=== PATIENT | female | born 2000 | race Caucasian/White ===

== ENCOUNTER 2020-09-26 15:34 | Outpatient (REF) | payer OTHER, SELFPAY ==
[2020-09-27 11:08] LABS: BV Int Neg Control Negative (Negative); BV Int Pos Control Positive (Positive)
[2020-10-21 13:23] LABS: CT PCR DETECTED (Not Detect.); NG PCR NOT DETECTED (Not Detect.)
== END 2020-09-26 15:35 | disposition home or self-care (01) ==
LOC: HO.LAB 15:34
PROVIDERS: PCP Internal Medicine; Referring Provider Internal Medicine; Visit Provider Advanced Practice Midwife
DX: Z01.419 Encounter for gynecological examination (general) (routine) without abnormal findings (principal); Z11.3 Encounter for screening for infections with a predominantly sexual mode of transmission; R53.83 Other fatigue; Z30.09 Encounter for other general counseling and advice on contraception
CPT/HCPCS: 87480; 87491; 87510; 87591; 87660

== ENCOUNTER 2020-09-26 16:35 | Outpatient (REF) | payer OTHER, SELFPAY ==
[2020-09-26 18:10] LABS: TSH reflex Free T4 0.79 mIU/mL (0.32-4.0)
[2020-09-27 09:13] LABS: Syphilis Screen Nonreactive (Nonreactive)
[2020-09-28 04:12] LABS: HBsAGNum1 0.21 S/CO (0.00-0.99); HIV AB/AG Nonreactive (Nonreactive); HIV Num 1 0.08 S/CO (0.00-0.99); Hepatitis B Surface Antigen Negative (Negative)
[2020-09-28 04:32] LABS: ~HepC Num1 0.08 S/CO (0.00-0.79); ~Hepatitis C Antibody Nonreactive (Nonreactive)
== END 2020-09-26 16:36 | disposition home or self-care (01) ==
LOC: HO.LAB 16:35
PROVIDERS: PCP Internal Medicine; Visit Provider Advanced Practice Midwife
DX: Z11.3 Encounter for screening for infections with a predominantly sexual mode of transmission (principal); R53.83 Other fatigue; N76.0 Acute vaginitis; B96.89 Other specified bacterial agents as the cause of diseases classified elsewhere
CPT/HCPCS: 84443; 86780; 86803; 87340; 87389

== ENCOUNTER → 2020-10-10 10:12 | Outpatient (BNVA) | payer OTHER, SELFPAY | PROVIDERS: PCP Internal Medicine; Visit Provider Advanced Practice Midwife | DX: Z76.89 Persons encountering health services in other specified circumstances (principal) ==

== ENCOUNTER → 2020-11-06 11:50 | Outpatient (BNVA) | payer OTHER, SELFPAY | PROVIDERS: PCP Pediatrics; Visit Provider Advanced Practice Midwife ==

== ENCOUNTER 2021-01-18 14:35 | Outpatient (REF) | payer OTHER, SELFPAY ==
[2021-01-19 09:12] LABS: BV Int Neg Control Negative (Negative); BV Int Pos Control Positive (Positive)
[2021-01-19 09:25] LABS: CT PCR NOT DETECTED (Not Detect.); NG PCR NOT DETECTED (Not Detect.)
== END 2021-01-18 14:36 | disposition home or self-care (01) ==
LOC: HO.LAB 14:35
PROVIDERS: PCP Pediatrics; Visit Provider Advanced Practice Midwife
DX: Z01.419 Encounter for gynecological examination (general) (routine) without abnormal findings (principal); Z11.3 Encounter for screening for infections with a predominantly sexual mode of transmission; Z20.2 Contact with and (suspected) exposure to infections with a predominantly sexual mode of transmission; A64 Unspecified sexually transmitted disease
CPT/HCPCS: 81003; 87480; 87491; 87510; 87591; 87660; 99212

== ENCOUNTER 2021-04-20 12:41 | Outpatient (REF) | payer OTHER, SELFPAY ==
[2021-04-20 14:08] LABS: Hematocrit 45.7 % (37-47); Hemoglobin 15.1 g/dl (12.0-16.0); Mean Corpuscular Hemoglobin 30.9 pg (27.0-33.0); Mean Corpuscular Volume 93.6 fL (80-98); Mean Platelet Volume 10.2 fL (9.4-12.3); Platelet Count 332 X10*3/uL (160-400); Red Blood Count 4.88 X10*6/uL (4.20-5.50); Red Cell Distribution Width 12.9 % (11.0-16.0); White Blood Count 8.3 X10*3/uL (4.8-10.8)
[2021-04-20 14:38] LABS: Syphilis Screen Nonreactive (Nonreactive)
[2021-04-20 23:09] LABS: CT PCR NOT DETECTED (Not Detect.); NG PCR NOT DETECTED (Not Detect.)
[2021-04-21 13:35] LABS: BV Int Neg Control Negative (Negative); BV Int Pos Control Positive (Positive)
[2021-04-23 03:42] LABS: HBc Num1 0.07 S/CO (0.00-0.79); HBsAGNum1 0.18 S/CO (0.00-0.99); Hepatitis B Core Antibody Nonreactive (Nonreactive); Hepatitis B Surface Antigen Negative (Negative); ~HepC Num1 0.07 S/CO (0.00-0.79); ~Hepatitis C Antibody Nonreactive (Nonreactive)
[2021-04-23 03:47] LABS: HIV AB/AG Nonreactive (Nonreactive); ~Hepatitis B Surface Antibody REACTIVE (Nonreactive)
[2021-04-25 04:41] LABS: HBS Num1 25.03 mIU/mL (0-7.99); HIV Num 1 0.09 S/CO (0.00-0.99)
[2021-04-25 05:40] LABS: Hepatitis A Antibody IgM 0.21 Index (0-0.79); ~Hepatitis A Antibody IgM Nonreactive (Nonreactive)
[2021-04-26 19:21] LABS: HSV 1 IgM IFA Negative (Negative); HSV 2 IgM IFA Negative (Negative)
== END 2021-04-20 12:42 | disposition home or self-care (01) ==
LOC: HO.HMGCLDS 12:41
PROVIDERS: Advanced Practice Midwife; PCP Pediatrics; Visit Provider Hospitalist
DX: Z01.84 Encounter for antibody response examination (principal); Z11.4 Encounter for screening for human immunodeficiency virus [HIV]; Z11.3 Encounter for screening for infections with a predominantly sexual mode of transmission; Z11.59 Encounter for screening for other viral diseases; R53.83 Other fatigue
CPT/HCPCS: 36415; 85027; 86695; 86696; 86704; 86706; 86709; 86780; 86803; 87086; 87088; 87186; 87340; 87389; 87480; 87491; 87510; 87591; 87660

== ENCOUNTER 2021-05-25 08:48 | Outpatient (REF) | payer OTHER, SELFPAY ==
[2021-05-26 13:10] LABS: CT PCR NOT DETECTED (Not Detect.); NG PCR NOT DETECTED (Not Detect.)
[2021-05-26 14:32] LABS: BV Int Neg Control Negative (Negative); BV Int Pos Control Positive (Positive)
== END 2021-05-25 08:49 | disposition home or self-care (01) ==
LOC: HO.LAB 08:48
PROVIDERS: PCP Pediatrics; Visit Provider Advanced Practice Midwife
DX: Z20.2 Contact with and (suspected) exposure to infections with a predominantly sexual mode of transmission (principal); N92.6 Irregular menstruation, unspecified; F41.8 Other specified anxiety disorders
CPT/HCPCS: 81025; 87480; 87491; 87510; 87591; 87660; 99212

== ENCOUNTER 2023-01-16 08:28 | Emergency (ER) | payer OTHER, SELFPAY ==
--- NOTE | ~2023-01-16 | XR_ITS ---
EXAMINATION: XR LUMBOSACRAL SPINE CLINICAL INFORMATION: Pain COMPARISON: None available. TECHNIQUE: Three views of the lumbosacral spine. FINDINGS: There are five segmented, nonrib-bearing vertebra of the lumbar spine. The vertebral bodies have normal height and alignment. The curvature of the lumbar spine is normal. The disc spaces are maintained. No evidence of degenerative disc disease. No pars interarticularis defect or vertebral compression fracture. The anterior and posterior elements are intact. No lytic or osteoblastic lesion. Sacrum and sacroiliac joints are normal. XR/XR lumbar spine 2-3V IMPRESSION: Normal radiographic examination of the lumbar spine.
[2023-01-16 08:31] VITALS: BP 106/62; PULSE 100; RESP 18; TEMP 36.6; O2SAT 100; BMI 20.2
[2023-01-16 08:55] LABS: Hematocrit 41.4 % (37.0-47.0); Hemoglobin 14.1 g/dl (12.0-16.0); Mean Corpuscular HGB Conc 34.1 g/dl (31.0-35.0); Mean Corpuscular Hemoglobin 31.1 pg (27.0-33.0); Mean Corpuscular Volume 91.2 fL (80.0-98.0); Mean Platelet Volume 9.6 fL (9.4-12.3); Platelet Count 319 X10*3/uL (160-400); Red Blood Count 4.54 X10*6/uL (4.20-5.50); Red Cell Distribution Width 13.6 % (11.0-16.0); White Blood Count 6.4 X10*3/uL (4.8-10.8)
--- NOTE | 2023-01-16 09:02 | ED_ITS ---
HPI - General Adult General Chief complaint: Back Pain/Injury Stated complaint: back pain Time Seen by Provider: 01/16/23 08:44 Source: patient Limitations: no limitations History of Present Illness HPI narrative: 22-year-old female presents with right-sided back and flank pain x3 months. Patient denies any injuries or trauma. Pain is at time intermittent. In increases with range of motion or palpation. Patient denies any painful ur ination or blood in the urine. Patient denies any past medical history of kidney stones. Patient is without nausea vomiting fever chills diarrhea. Symptoms are [id number]. 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 No other [employer] plaints at this time Related Data Home Medications Medication Instructions Recorded Confirmed aripiprazole 2 mg tablet 2 mg PO DAILY 09/26/20 04/20/21 hydroxyzine HCl 25 mg tablet 25 mg PO BID 09/26/20 04/20/21 Previous Rx's Medication Instructions Recorded azithromycin 500 mg tablet 1,000 mg PO ONCE 1 day #2 tabs 10/24/20 (Zithromax) metronidazole 500 mg tablet 500 mg PO BID 10 days #20 tabs 10/24/20 (Flagyl) metronidazole 0.75 % (37.5 mg/5 1 appful vaginal .twice per week 4 04/23/21 gram) vaginal gel (Metrogel months #70 grams Vaginal) ibuprofen 600 mg tablet 600 mg PO TID PRN pain #30 tabs 01/16/23 methocarbamol 750 mg tablet 750 mg PO TID PRN muscle spasm #20 01/16/23 tabs Allergies Allergy/AdvReac Type Severity Reaction Status Date / Time No Known Allergies Allergy Verified 05/25/21 08:53 [No Known Allergies*] Review of Systems Review of Systems: Constitutional : No Weight loss, No Fever, No Chills, No Night Sweats, No Fati jorge, No Malaise ENT/Mouth : no sore throat Eyes: no vision change Cardiovascular : no chest pain shortness of breath Respiratory : no shortness of breath Gastrointestinal : no abdominal pain no nausea vomiting no diarrhea Genitourinary : denies painful urination vaginal discharge Musculoskeletal : right flank lumbar pain Neuro : No Weakness, No Numbness, No Paresthesias, No Loss of Consciousness, No Dizziness, No Headache Heme/Lymph: No Bruising, No Bleeding Endocrine : No Polyuria, No Polydipsia, No Temperature Intolerance [facility] Past Medical History Attestation statement: The following information was validated with the patient. Medical History Anxiety and depression Bacterial vaginosis Suicide attempt Surgical History No pertinent past surgical history Family History Family History Father No problems noted. Mother No problems noted. Family/Other Breast cancer Social History Social History Alcohol intake: current Alcohol intake frequency: a few times a week Cigarettes Per Day: 4 Advance Directives: No Sexual orientation: Straight/Heterosexual Physical Exam ED Vital Signs: Vital Signs - 24 hr 01/16/23 08:31 Temperature 97.8 F Pulse Rate 100 Respiratory Rate 18 Blood Pressure 106/62 Pulse Oximetry 100 Oxygen Delivery Method Room Air BMI result Body Mass Index 20.2 vital signs have been reviewed as normal and appeared to be correct. Blood pressure normal. Heart rate normal. Respiration rate normal. Temperature normal. Oxygen saturation normal. Appearance: Alert. Oriented X3. No acute distress. Head: Normal external exam. Normocephalic. Atraumatic. d Eyes: PERRLA. EOMI. Conjunctiva and sclera normal. Eyelids normal. ENT: Pharynx normal. Uvula midline. Moist mucous membranes. Neck: Soft full range of motion, no JVD CVS: Heart regular rate and rhythm no murmurs and rubs Respiratory: Breath sounds are clear to auscultation bilaterally. No accessory muscle use noted. Abdomen: Soft nontender no rebound or guarding positive bowel sounds Back: positive paraspinal muscle tenderness of the right lumbar spine no midline tenderness. Skin: Skin warm and dry. Normal skin color. Extremities: No lower extremity edema. Extremities exhibit normal range of motion. Extremities nontender. Neuro: Oriented X 3. No motor deficit. No sensory deficit. Reflexes normal. Course Course Course Narrative: Lumbar strain Muscle spasm Renal calculi less likely Pyelonephritis less likely CBC CMP UA pending 22-year-old female with concerns of right-sided lower back pain ongoing greater than 3 in months. Symptoms seem more consistent with muscle skeletal strain UA is pending low suspicion for renal calculi or pyelonephritis at this time pain a vlad 10:47 symptoms are consistent with muscle skeletal pain labs are unremarkable LS spine is negative by radiology review. will place patient on muscle relaxer at this time and nonsteroidals. Medical Decision Making Lab Data 01/16/23 08:48 01/16/23 08:48 Labs: Lab Results 01/16/23 01/16/23 01/16/23 Range/Units 08:48 08:48 09:13 WBC 6.4 (4.8-10.8) X10*3/uL RBC 4.54 (4.20-5.50) X10*6/uL Hgb 14.1 (12.0-16.0) g/dl Hct 41.4 (37.0-47.0) % MCV 91.2 (80.0-98.0) fL MCH 31.1 (27.0-33.0) pg MCHC 34.1 (31.0-35.0) g/dl RDW 13.6 (11.0-16.0) % Plt Count 319 (160-400) X10*3/uL MPV 9.6 (9.4-12.3) fL Absolute Nucleated RBC 0.000 (0.0-0.012) X10*3/uL Nucleated RBC % (auto) 0.0 (0.0-0.2) /100WBC Sodium 139 (135-145) mmol/L Potassium 4.6 (3.3-5.1) mmol/L Chloride 108 (96-108) mmol/L Carbon Dioxide 22 (22-29) mmol/L Anion Gap 14 (12-20) BUN 12 (9-16) mg/dL Creatinine 0.74 (0.5-1.4) mg/dL Estim Creat Clear Calc 81.3 Estimated GFR > 60 Random Glucose 85 (60-115) mg/dL Calcium 9.3 (8.4-10.2) mg/dL Urine Color Yellow Urine Appearance Clear Urine pH 5.5 (5.0-9.0) Ur Specific [place] 1.025 (1.005-1.025) Urine Protein Negative (Neg-Trace) mg/dL Urine Glucose (UA) Negative (Negative) mg/dL Urine Ketones Negative (Negative) mg/dL Urine Blood Negative (Negative) Urine Nitrite Negative (Negative) Ur Leukocyte Esterase Negative (Negative) Urine Test (NEGATIVE) 01/16/23 Range/Units 09:13 WBC (4.8-10.8) X10*3/uL RBC (4.20-5.50) X10*6/uL Hgb (12.0-16.0) g/dl Hct (37.0-47.0) % MCV (80.0-98.0) fL MCH (27.0-33.0) pg MCHC (31.0-35.0) g/dl RDW (11.0-16.0) % Plt Count (160-400) X10*3/uL MPV (9.4-12.3) fL Absolute Nucleated RBC (0.0-0.012) X10*3/uL Nucleated RBC % (auto) (0.0-0.2) /100WBC Sodium (135-145) mmol/L Potassium (3.3-5.1) mmol/L Chloride (96-108) mmol/L Carbon Dioxide (22-29) mmol/L Anion Gap (12-20) BUN (9-16) mg/dL Creatinine (0.5-1.4) mg/dL Estim Creat Clear Calc Estimated GFR Random Glucose (60-115) mg/dL Calcium (8.4-10.2) mg/dL Urine Color Urine Appearance Urine pH (5.0-9.0) Ur Specific [place] (1.005-1.025) Urine Protein (Neg-Trace) mg/dL Urine Glucose (UA) (Negative) mg/dL Urine Ketones (Negative) mg/dL Urine Blood (Negative) Urine Nitrite (Negative) Ur Leukocyte Esterase (Negative) Urine Test NEGATIVE (NEGATIVE) Discharge Plan Discharge Clinical Impression: Strain of lumbar region Patient Disposition: Home, Self-Care Instructions: Acute Low Back Pain (ED) Additional Instructions: Your lab work is unremarkable no signs of a kidney stone or urinary tract infection x-ray of the lumbar spine was negative for any acute findings your symptoms and clinical findings are consistent with muscle skeletal strain of the lower back medications as directed follow-up with PCP Prescriptions: New methocarbamol 750 mg tablet 750 mg PO TID PRN (Reason: muscle spasm) Qty: 20 0RF ibuprofen 600 mg tablet 600 mg PO TID PRN (Reason: pain) Qty: 30 0RF No Action metronidazole [Flagyl] 500 mg tablet 500 mg PO BID 10 Days Qty: 20 0RF Rx Instructions: Avoid Alcohol or vinegar based products while taking azithromycin [Zithromax] 500 mg tablet 1,000 mg PO ONCE 1 Days Qty: 2 0RF metronidazole [Metrogel Vaginal] 0.75 % gel 1 appful vaginal .twice per week 120 Days Qty: 70 2RF aripiprazole 2 mg tablet 2 mg PO DAILY hydroxyzine HCl 25 mg tablet 25 mg PO BID
[2023-01-16 09:09] LABS: Anion Gap 14 (12-20); Blood Urea Nitrogen 12 mg/dL (9-16); Calcium 9.3 mg/dL (8.4-10.2); Carbon Dioxide 22 mmol/L (22-29); Chloride 108 mmol/L (96-108); Creatinine Clr Calc Pharmacy 81.3; Estimated Glomerular Filt Rate > 60; Glucose Random 85 mg/dL (60-115); Potassium 4.6 mmol/L (3.3-5.1); Sodium 139 mmol/L (135-145)
[2023-01-16 09:20] LABS: Appearance Urine Clear; Color Urine Yellow; Glucose Urine UA Negative (Negative); Leukocyte Esterase Urine Negative (Negative); Nitrite Urine Negative (Negative); PH 5.5 (5.0-9.0); Specific Gravity - Urine 1.025 (1.005-1.025); Urine Blood Negative (Negative); Urine Ketones Negative (Negative); Urine Protein Negative (Neg-Trace)
[2023-01-16 09:22] LABS: UPreg QC Valid YES; Urine Pregnancy NEGATIVE (NEGATIVE)
--- NOTE | 2023-01-16 11:16 | PC.NURSE ---
PT WAS EVALUATED AND AWAITED RESULTS WITHOUT ACUTE DISTRESS.
== END 2023-01-16 11:18 | disposition home or self-care (01) ==
PROVIDERS: Emergency Provider Emergency Medicine; PCP Pediatrics
DX: M54.50 Low back pain, unspecified (principal); Z79.899 Other long term (current) drug therapy
CPT/HCPCS: 36415; 72100; 80048; 81003; 81025; 85027; 99282; 99283

== ENCOUNTER 2023-05-17 03:48 | Emergency (ER) | payer OTHER, SELFPAY ==
--- NOTE | ~2023-05-17 | XR_ITS ---
EXAMINATION: XR CHEST CLINICAL INFORMATION: Question of pneumomediastinum. COMPARISON: Earlier same day TECHNIQUE: 2 views of the chest were obtained. FINDINGS: Normal symmetric lung volumes. No parenchymal consolidation. No pleural effusion. No pneumothorax. Cardiomediastinal silhouette and pulmonary vascularity are within normal limits. No pneumomediastinum. No acute osseous abnormalities. XR/XR chest 2V IMPRESSION: * No evidence of pneumomediastinum. * Normal chest
--- NOTE | ~2023-05-17 | XR_ITS ---
EXAMINATION: XR CHEST CLINICAL INFORMATION: Sharp pain on inspiration COMPARISON: None available. TECHNIQUE: Frontal view of the chest was obtained. FINDINGS: Lungs are clear. No pleural effusion or pneumothorax. Questionable lucency along the right heart border versus Mach artifact. Normal heart size and pulmonary vascularity. No acute osseous abnormalities. XR/XR chest 1V IMPRESSION: Questionable pneumomediastinum versus artifact. Recommend dedicated PA and lateral views of the chest. This critical result was discussed with Dr Michele at 05/17/2023 5:33 AM and it was ascertained that the content and urgency of the report was understood at the time of direct communication.
[2023-05-17 04:04] VITALS: BP 114/71; PULSE 85; RESP 16; TEMP 36.9; O2SAT 98; BMI 20.2
--- NOTE | 2023-05-17 05:33 | ED_ITS ---
HPI - URI/Sore Throat General Chief Complaint: Upper Respiratory Symptoms Stated Complaint: Sharp pain when breathing Time Seen by Provider: 05/17/23 05:08 Source: patient Mode of arrival: ambulatory Limitations: no limitations History of Present Illness HPI Narrative: Patient having sharp pain in the right chest for last 2 days slight running nose denies any sneezing or cough pain increases on deep inspiration Related Data Home Medications Medication Instructions Recorded Confirmed aripiprazole 2 mg tablet 2 mg PO DAILY 09/26/20 04/20/21 hydroxyzine HCl 25 mg tablet 25 mg PO BID 09/26/20 04/20/21 Previous Rx's Medication Instructions Recorded azithromycin 500 mg tablet 1,000 mg PO ONCE 1 day #2 tabs 10/24/20 (Zithromax) metronidazole 500 mg tablet 500 mg PO BID 10 days #20 tabs 10/24/20 (Flagyl) metronidazole 0.75 % (37.5 mg/5 1 appful vaginal .twice per week 4 04/23/21 gram) vaginal gel (Metrogel months #70 grams Vaginal) ibuprofen 600 mg tablet 600 mg PO TID PRN pain #30 tabs 01/16/23 methocarbamol 750 mg tablet 750 mg PO TID PRN muscle spasm #20 01/16/23 tabs ibuprofen 200 mg tablet (Motrin IB) 400 mg PO Q8H PRN pain #30 tabs 05/17/23 Allergies Allergy/AdvReac Type Severity Reaction Status Date / Time No Known Allergies Allergy Verified 05/25/21 08:53 [No Known Allergies*] Review of Systems Review of Systems: Yes all other systems are reviewed and are negative PMFSH Past Medical History Medical History Anxiety and depression Bacterial vaginosis Suicide attempt Surgical History No pertinent past surgical history Family History Family History Father No problems noted. Mother No problems noted. Family/Other Breast cancer Social History Social History Alcohol intake: current Alcohol intake frequency: a few times a week Cigarettes Per Day: 4 Advance Directives: No Advance Directives Information Provided: No Sexual orientation: Straight/Heterosexual Physical Exam Vital Signs: Vital Signs: Last Vital Signs Temp 98.4 F 05/17/23 04:04 Pulse 85 05/17/23 04:04 Resp 16 05/17/23 04:04 BP 114/71 05/17/23 04:04 Pulse Ox 98 05/17/23 04:04 O2 Del Method Room Air 05/17/23 04:04 BMI result Body Mass Index 20.2 Appearance: Alert. Oriented X3. No acute distress. ENT: Pharynx normal. Oral Mucosa moist Neck: Normal inspection. Neck supple. CVS: Normal heart rate and rhythm. Pulses normal. Respiratory: No respiratory distress. Equal air entry bilateral, no wheezing/rales/rhonchi no subcutaneus emphysema Abdomen: Soft and nontender. Bowel sounds are present, no mass palpable, no CVA tenderness Skin: Skin warm and dry. Normal skin color. Normal skin turgor. Extremities: No lower extremity edema. No calf tenderness Neuro: Oriented X 3. Medical Decision Making Medical Decision Making MDM Narrative: Patient with unspecific right-sided pain two views of chest x-ray negative likely pleurisy discharge patient on ibuprofen Differential Diagnosis Differential Diagnoses: The differential diagnosis associated with the pres entation includes Pleurisy/pneumonia/pneumothorax/pleural effusion/musculoskeletal pain Discharge Plan Discharge Clinical Impression: Pleurisy Patient Disposition: Home, Self-Care Instructions: Pleurisy (ED) Additional Instructions: Your right sided chest pain is likely from pleurisy Take ibuprofen for pain Prescriptions: New ibuprofen [Motrin IB] 200 mg tablet 400 mg PO Q8H PRN (Reason: pain) Qty: 30 0RF No Action metronidazole [Flagyl] 500 mg tablet 500 mg PO BID 10 Days Qty: 20 0RF Rx Instructions: Avoid Alcohol or vinegar based products while taking azithromycin [Zithromax] 500 mg tablet 1,000 mg PO ONCE 1 Days Qty: 2 0RF metronidazole [Metrogel Vaginal] 0.75 % gel 1 appful vaginal .twice per week 120 Days Qty: 70 2RF methocarbamol 750 mg tablet 750 mg PO TID PRN (Reason: muscle spasm) Qty: 20 0RF ibuprofen 600 mg tablet 600 mg PO TID PRN (Reason: pain) Qty: 30 0RF aripiprazole 2 mg tablet 2 mg PO DAILY hydroxyzine HCl 25 mg tablet 25 mg PO BID
[2023-05-17 06:33] VITALS: BP 92/56; PULSE 73; RESP 12; TEMP 36.7; O2SAT 97
[2023-05-17] MEDS: Ibuprofen 400 MG TABLET PO (06:34)
== END 2023-05-17 06:43 | disposition home or self-care (01) ==
PROVIDERS: Emergency Provider Internal Medicine; PCP Pediatrics
DX: R09.1 Pleurisy (principal)
CPT/HCPCS: 71045; 71046; 99283; 99284

== ENCOUNTER 2024-07-31 19:33 | Emergency (ER) | payer OTHER, SELFPAY ==
[2024-07-31 19:49] VITALS: BP 118/81; PULSE 105; RESP 18; TEMP 36.8; O2SAT 100; BMI 20.2
--- NOTE | 2024-07-31 19:50 | ED_ITS ---
HPI - Female Genitourinary General Chief complaint: Urogenital-Female Stated complaint: wants to be tested for STD Time Seen by Provider: 07/31/24 21:11 Source: patient Mode of arrival: ambulatory Limitations: no limitations History of Present Illness ED Provider: ciro WANG Narrative: Patient is complaining of vaginal malodor does discharge for last 1 month history of BV in the past but it seems to be different this time no history of gonorrhea no pelvic pain Related Data Home Medications ?Medication ?Instructions ?Recorded ?Confirmed aripiprazole 2 mg tablet 2 mg PO DAILY 09/26/20 04/20/21 hydroxyzine HCl 25 mg tablet 25 mg PO BID 09/26/20 04/20/21 Previous Rx's ?Medication ?Instructions ?Recorded azithromycin 500 mg tablet 1,000 mg (2 x 500 mg) PO ONCE 1 10/24/20 (Zithromax) day #2 tabs metronidazole 500 mg tablet 500 mg PO BID 10 days #20 tabs 10/24/20 (Flagyl) metronidazole 0.75 % (37.5 mg/5 1 appful vaginal .twice per week 4 04/23/21 gram) vaginal gel (Metrogel months #70 grams Vaginal) ibuprofen 600 mg tablet 600 mg PO TID PRN pain #30 tabs 01/16/23 methocarbamol 750 mg tablet 750 mg PO TID PRN muscle spasm #20 01/16/23 tabs ibuprofen 200 mg tablet (Motrin IB) 400 mg (2 x 200 mg) PO Q8H PRN 05/17/23 pain #30 tabs doxycycline hyclate 100 mg tablet 100 mg PO BID #14 tabs 07/31/24 metronidazole 500 mg tablet 500 mg PO BID 7 days #14 tabs 07/31/24 Allergies Allergy/AdvReac Type Severity Reaction Status Date / Time No Known Allergies Allergy Verified 07/31/24 19:53 [No Known Allergies*] Review of Systems 2 Review of Systems: Yes all other systems are reviewed and are negative PMFSH Past Medical History Medical History Suicide attempt Anxiety and depression Bacterial vaginosis Surgical History No pertinent past surgical history Family History Family History Father No problems noted. Mother No problems noted. Family/Other Breast cancer Social History Social History Alcohol intake: current Alcohol intake frequency: a few times a week Cigarettes Per Day: 4 Advance Directives: No Advance Directives Information Provided: No Do you have a plan to hurt others: No Plan Sexual orientation: Straight/Heterosexual Physical Exam 2 Vital Signs: Vital Signs: Last Vital Signs Temp 97.8 F 07/31/24 22:27 Pulse 80 07/31/24 22:27 Resp 16 07/31/24 22:27 BP 99/67 07/31/24 22:27 Pulse Ox 100 07/31/24 22:27 O2 Del Method Room Air 07/31/24 22:27 BMI result Body Mass Index 20.2 Appearance: Alert. Oriented X3. No acute distress. ENT: Pharynx normal. Oral Mucosa moist Neck: Normal inspection. Neck supple. CVS: Normal heart rate and rhythm. Pulses normal. Respiratory: No respiratory distress. Equal air entry bilateral, no wheezing/rales/rhonchi Abdomen: Soft and nontender. Bowel sounds are present, no mass palpable, no CVA tenderness Skin: Skin warm and dry. Normal skin color. Normal skin turgor. Course Course Course Narrative: This is a Rapid Medical Exam performed in triage by Edel Max PA-C. Full HPI, ROS and PE to be performed by primary ED provider. 24 yo F presenting to the ED c/o vaginal discharge & spotting w/ odor x June. Admits started Depo in Jun. Admits to new sexual partner w/o use of protection. Reports intermittent flank pain. denies abdominal pain, dysuria, itching. LMP June 01 PE: nontoxic appearing, NAD Plan: UA, Ur preg, STI testing, labs Medical Decision Making Medical Decision Making MDM Narrative: Sample taken for STI patient would like to wait for GC treatment will give Flagyl and doxycycline for covering when trichomoniasis, chlamydia and BV Lab Data [facility] Lab Attestation statement: I reviewed the patient's lab results. 07/31/24 20:09 07/31/24 20:09 Labs: Lab Results 07/31/24 07/31/24 Range/Units 20:09 20:52 WBC 8.2 (4.8-10.8) X10*3/uL RBC 4.80 (4.20-5.50) X10*6/uL Hgb 15.4 (12.0-16.0) g/dl Hct 43.3 (37.0-47.0) % MCV 90.2 (80.0-98.0) fL MCH 32.1 (27.0-33.0) pg MCHC 35.6 H (31.0-35.0) g/dl RDW 12.3 (11.0-16.0) % Plt Count 303 (160-400) X10*3/uL MPV 9.4 (9.4-12.3) fL Immature Gran % (Auto) 0.4 (0.0-0.4) % Neut % (Auto) 68.0 (45-73) % Lymph % (Auto) 23.0 (20-40) % [place] % (Auto) 6.8 (2-11) % Eos % (Auto) 0.9 (0-4) % Baso % (Auto) 0.9 (0-2) % Lymph # (Auto) 1.9 (1.2-4.9) X10*3/uL [place] # (Auto) 0.6 (0.1-1.2) X10*3/uL Eos # (Auto) 0.1 (0.0-0.4) X10*3/uL Baso # (Auto) 0.1 (0.0-0.2) X10*3/uL Abs Immat Gran (auto) 0.03 (0.00-0.03) X10*3/uL Absolute Neuts (auto) 5.6 (2.0-8.3) x10*3/uL Absolute Nucleated RBC 0.000 (0.0-0.012) X10*3/uL Nucleated RBC % (auto) 0.0 (0.0-0.2) /100WBC Sodium 141 (135-145) mmol/L Potassium 3.6 (3.3-5.1) mmol/L Chloride 108 (96-108) mmol/L Carbon Dioxide 25 (22-29) mmol/L Anion Gap 12 (12-20) BUN 8 L (9-16) mg/dL Creatinine 0.83 (0.5-1.4) mg/dL Estim Creat Clear Calc 71.2 Estimated GFR > 60 Random Glucose 70 (60-115) mg/dL Calcium 9.1 (8.4-10.2) mg/dL Total Bilirubin 0.8 (0.0-1.0) mg/dL Direct Bilirubin 0.3 (0.0-0.5) mg/dL AST 19 (5-31) U/L ALT 15 (0-31) U/L Alkaline Phosphatase 55 (39-117) U/L Total Protein 7.9 (6.5-8.0) g/dL Albumin 4.6 (3.5-5.0) g/dL Lipase 26 (8-78) U/L Urine Color Yellow Urine Appearance Cloudy Urine pH 7.0 (5.0-9.0) Ur Specific [place] 1.025 (1.005-1.025) Urine Protein Trace (Neg-Trace) mg/dL Urine Glucose (UA) Negative (Negative) mg/dL Urine Ketones Trace (Negative) mg/dL Urine Blood Negative (Negative) Urine Nitrite Positive H (Negative) Ur Leukocyte Esterase Trace H (Negative) Urine RBC 6-10 H (0-2) /HPF Urine WBC 6-10 (0-5) /HPF Ur Squamous Epith Cells 3-5 (0-2) /HPF Urine Bacteria 4+ (None Seen) Hyaline Casts 6-10 (0-2) /LPF Urine Test NEGATIVE (NEGATIVE) Discharge Plan Discharge Clinical Impression: Bacterial vaginosis Patient Disposition: Home, Self-Care Instructions: Bacterial Vaginosis (ED) Additional Instructions: Take medication as prescribed Your samples are taken and reports are pending Prescriptions: New doxycycline hyclate 100 mg tablet 100 mg PO BID Qty: 14 0RF metronidazole 500 mg tablet 500 mg PO BID 7 Days Qty: 14 0RF No Action metronidazole [Flagyl] 500 mg tablet 500 mg PO BID 10 Days Qty: 20 0RF Rx Instructions: Avoid Alcohol or vinegar based products while taking azithromycin [Zithromax] 500 mg tablet 1,000 mg PO ONCE 1 Days Qty: 2 0RF metronidazole [Metrogel Vaginal] 0.75 % gel 1 appful vaginal .twice per week 120 Days Qty: 70 2RF methocarbamol 750 mg tablet 750 mg PO TID PRN (Reason: muscle spasm) Qty: 20 0RF ibuprofen 600 mg tablet 600 mg PO TID PRN (Reason: pain) Qty: 30 0RF ibuprofen [Motrin IB] 200 mg tablet 400 mg PO Q8H PRN (Reason: pain) Qty: 30 0RF aripiprazole 2 mg tablet 2 mg PO DAILY hydroxyzine HCl 25 mg tablet 25 mg PO BID Interventions: ED Discharge Assessment Last Done: 07/31/24 22:27 Discharge Date/Time: 07/31/24 22:27 Print Language: [place]
[2024-07-31 20:23] LABS: MANUAL DIFF FLAG NO
[2024-07-31 20:25] LABS: UPreg QC Valid YES; Urine Pregnancy NEGATIVE (NEGATIVE)
[2024-07-31 20:26] LABS: Basophils Absolute Auto 0.1 X10*3/uL (0.0-0.2); Basophils Percent Auto 0.9 % (0-2); Eosinophils Absolute Auto 0.1 X10*3/uL (0.0-0.4); Eosinophils Percent Auto 0.9 % (0-4); Hematocrit 43.3 % (37.0-47.0); Hemoglobin 15.4 g/dl (12.0-16.0); Imm Gran Abs Auto 0.03 X10*3/uL (0.00-0.03); Imm Gran Pct Auto 0.4 % (0.0-0.4); Lymphocytes Absolute Auto 1.9 X10*3/uL (1.2-4.9); Mean Corpuscular HGB Conc 35.6 g/dl (31.0-35.0); Mean Corpuscular Hemoglobin 32.1 pg (27.0-33.0); Mean Corpuscular Volume 90.2 fL (80.0-98.0); Mean Platelet Volume 9.4 fL (9.4-12.3); Monocytes Absolute Auto 0.6 X10*3/uL (0.1-1.2); Monocytes Percent Auto 6.8 % (2-11); Neutrophils Absolute Auto 5.6 x10*3/uL (2.0-8.3); Platelet Count 303 X10*3/uL (160-400); Red Cell Distribution Width 12.3 % (11.0-16.0); White Blood Count 8.2 X10*3/uL (4.8-10.8)
[2024-07-31 20:38] LABS: Alanine Aminotransferase 15 U/L (0-31); Albumin Level 4.6 g/dL (3.5-5.0); Alkaline Phosphatase 55 U/L (39-117); Anion Gap 12 (12-20); Aspartate Amino Transferase 19 U/L (5-31); Bilirubin Direct 0.3 mg/dL (0.0-0.5); Bilirubin Total 0.8 mg/dL (0.0-1.0); Blood Urea Nitrogen 8 mg/dL (9-16); Calcium 9.1 mg/dL (8.4-10.2); Carbon Dioxide 25 mmol/L (22-29); Chloride 108 mmol/L (96-108); Creatinine Clr Calc Pharmacy 71.2; Estimated Glomerular Filt Rate > 60; Glucose Random 70 mg/dL (60-115); Lipase 26 U/L (8-78); Potassium 3.6 mmol/L (3.3-5.1); Sodium 141 mmol/L (135-145); Total Protein 7.9 g/dL (6.5-8.0)
[2024-07-31 20:57] LABS: Appearance Urine Cloudy; Color Urine Yellow; Glucose Urine UA Negative (Negative); Leukocyte Esterase Urine Trace (Negative); Nitrite Urine Positive (Negative); Specific Gravity - Urine 1.025 (1.005-1.025); UMIC TRIGGER UACC YES; Urine Blood Negative (Negative); Urine Ketones Trace mg/dL (Negative); Urine Protein Trace mg/dL (Neg-Trace)
[2024-07-31 21:05] LABS: Bacteria Urine 4+ (None Seen); UACC Culture Trigger YES
[2024-07-31 22:08] VITALS: BP 99/67; PULSE 80; RESP 16; TEMP 36.6; O2SAT 100
[2024-07-31 22:27] VITALS: BP 99/67; PULSE 80; RESP 16; TEMP 36.6; O2SAT 100
[2024-08-01 06:11] LABS: CT PCR NOT DETECTED (Not Detect.); NG PCR NOT DETECTED (Not Detect.)
[2024-08-01 10:25] LABS: Bacterial Vaginosis PCR POSITIVE (Negative); Candida Group PCR NOT DETECTED (Not Detect); Candida glab krusei PCR NOT DETECTED (Not Detect); Trichomonas vaginalis PCR NOT DETECTED (Not Detect)
== END 2024-07-31 22:27 | disposition home or self-care (01) ==
PROVIDERS: Physician Assistant; Emergency Provider Internal Medicine; PCP Pediatrics
DX: N76.0 Acute vaginitis (principal); Z20.2 Contact with and (suspected) exposure to infections with a predominantly sexual mode of transmission
CPT/HCPCS: 0352U; 36415; 80048; 80076; 81001; 81025; 83690; 85025; 87086; 87088; 87186; 87491; 87591; 99283